=== PATIENT | female | born 1955 | race Asian ===

== ENCOUNTER → 2018-12-16 | Outpatient (CLI) | payer OTHER ==
[2018-12-17 14:53] LABS: RUBEOLA (MEASLES) IGG >300.0 AU/mL (Immune >29.9)
== END | disposition home or self-care (01) ==
LOC: EMPHLTH 13:04
PROVIDERS: ATTEND Internal Medicine
DX: Z02.1 Encounter for pre-employment examination (principal)
CPT/HCPCS: 86706; 86735; 86762; 86765; 86787

== ENCOUNTER → 2018-12-18 | Outpatient (CLI) | payer OTHER | END | disposition home or self-care (01) | LOC: EMPHLTH 14:28 | PROVIDERS: ATTEND Internal Medicine | DX: R76.11 Nonspecific reaction to tuberculin skin test without active tuberculosis (principal) ==

== ENCOUNTER → 2020-01-01 | Outpatient (CLI) | payer OTHER ==
[2020-01-01 10:12] LABS: EOSINOPHILS % (AUTO) 4.8 % (1.0-6.0); HEMATOCRIT 41.5 % (36-46); LYMPHOCYTES # (AUTO) 2.6 K/uL (1.0-4.8); LYMPHOCYTES % (AUTO) 49.4 % (22.0-44.0); MEAN CORPUSCULAR HEMOGLOBIN 31.1 pg (26.0-34.0); MEAN CORPUSCULAR HGB CONC 33.8 G/dL (31.0-37.0); MEAN CORPUSCULAR VOLUME 92 fL (80-100); MONOCYTES # (AUTO) 0.3 K/uL (0.1-1.0); MONOCYTES % (AUTO) 6.2 % (2.0-9.0); NEUTROPHILS % (AUTO) 38.6 % (40.0-70.0); PLATELET COUNT (AUTO) 247 K/uL (150-450); RED BLOOD CELL COUNT(AUTO) 4.52 MIL/uL (4.00-5.20); RED CELL DISTRIBUTION WIDTH 12.8 % (11.5-14.5)
[2020-01-01 10:24] LABS: HEMOGLOBIN A1C 5.5 % (3.8-5.6)
[2020-01-01 10:29] LABS: ALANINE AMINOTRANSFERASE 39 U/L (12-78); ALBUMIN 3.8 g/dL (3.4-5.0); ALKALINE PHOSPHATASE 88 U/L (46-116); ANION GAP 5 mmol/L (8-16); ASPARTATE AMINOTRANSFERASE 28 U/L (15-37); BILIRUBIN,TOTAL 0.9 mg/dL (0.1-1.0); CALCIUM, TOTAL 9.2 mg/dL (8.8-10.5); CARBON DIOXIDE 28 mmol/L (22-29); CHLORIDE 106 mmol/L (98-107); CHOL/HDL RATIO 4.9 (3.9-5.7); CHOLESTEROL 165 mg/dL (131-200); CREATININE 0.73 mg/dL (0.60-1.30); GLOMERULAR FILTR. RATE CALC > 60 mL/min (>60); GLUCOSE,RANDOM 105 mg/dL (70-110); HDL CHOLESTEROL 34 mg/dL (40-60); LDL CHOL (CALC.) 79 mg/dL (0-130); POTASSIUM 4.1 mmol/L (3.5-5.1); SODIUM SERUM 139 mmol/L (136-145); TOTAL PROTEIN, SERUM 7.5 g/dL (6.4-8.2); TRIGLYCERIDES 258 mg/dL (15-150); UREA NITROGEN, BLOOD 16 mg/dL (7-18)
[2020-01-01 10:30] LABS: FOLATE SERUM 18.5 ng/mL (5.4-)
== END | disposition home or self-care (01) ==
LOC: LABPV 08:21
PROVIDERS: ATTEND Legal Medicine
DX: I10 Essential (primary) hypertension (principal); E55.9 Vitamin D deficiency, unspecified
CPT/HCPCS: 82306; 82607; 82746; 83036; 84443

== ENCOUNTER → 2020-01-19 | Outpatient (CLI) | payer OTHER | END | disposition home or self-care (01) | LOC: LABPV 17:19 | PROVIDERS: ATTEND Emergency Medicine | DX: Z20.828 Contact with and (suspected) exposure to other viral communicable diseases (principal) | CPT/HCPCS: 87426; U0003 ==

== ENCOUNTER → 2020-01-26 | Outpatient (CLI) | payer OTHER | END | disposition home or self-care (01) | LOC: LABMN 15:27 | DX: Z20.828 Contact with and (suspected) exposure to other viral communicable diseases (principal) | CPT/HCPCS: U0003-CS ==

== ENCOUNTER → 2021-01-20 | Outpatient (CLI) | payer OTHER ==
[2021-01-20 07:49] LABS: BASOPHILS % (AUTO) 0.8 % (0.0-2.0); EOSINOPHILS % (AUTO) 3.4 % (1.0-6.0); HEMATOCRIT 43.4 % (36-46); HEMOGLOBIN 14.4 g/dL (12.0-16.0); LYMPHOCYTES # (AUTO) 3.5 K/uL (1.0-4.8); LYMPHOCYTES % (AUTO) 50.4 % (22.0-44.0); MEAN CORPUSCULAR HEMOGLOBIN 30.4 pg (26.0-34.0); MEAN CORPUSCULAR HGB CONC 33.1 G/dL (31.0-37.0); MEAN CORPUSCULAR VOLUME 92 fL (80-100); MONOCYTES # (AUTO) 0.5 K/uL (0.1-1.0); MONOCYTES % (AUTO) 7.3 % (2.0-9.0); NEUTROPHILS # (AUTO) 2.7 K/uL (1.8-7.7); NEUTROPHILS % (AUTO) 38.1 % (40.0-70.0); PLATELET COUNT (AUTO) 267 K/uL (150-450); RED BLOOD CELL COUNT(AUTO) 4.74 MIL/uL (4.00-5.20); RED CELL DISTRIBUTION WIDTH 12.8 % (11.5-14.5)
[2021-01-20 08:03] LABS: ALANINE AMINOTRANSFERASE 71 U/L (12-78); ALKALINE PHOSPHATASE 96 U/L (46-116); ANION GAP 9 mmol/L (8-16); ASPARTATE AMINOTRANSFERASE 38 U/L (15-37); BILIRUBIN,TOTAL 1.4 mg/dL (0.1-1.0); CALCIUM, TOTAL 9.1 mg/dL (8.8-10.5); CARBON DIOXIDE 28 mmol/L (22-29); CHLORIDE 107 mmol/L (98-107); CHOL/HDL RATIO 4.7 (3.9-5.7); CHOLESTEROL 205 mg/dL (131-200); CREATININE 0.65 mg/dL (0.60-1.30); GLOMERULAR FILTR. RATE CALC > 60 mL/min (>60); GLUCOSE,RANDOM 101 mg/dL (70-110); HDL CHOLESTEROL 44 mg/dL (40-60); LDL CHOL (CALC.) 126 mg/dL (0-130); SODIUM SERUM 144 mmol/L (136-145); TOTAL PROTEIN, SERUM 7.8 g/dL (6.4-8.2); TRIGLYCERIDES 174 mg/dL (15-150); UREA NITROGEN, BLOOD 16 mg/dL (7-18)
[2021-01-20 08:22] LABS: THYROID STIMULATING HORMONE 2.88 uIU/mL (0.36-3.74)
== END | disposition home or self-care (01) ==
LOC: LABPV 07:25
PROVIDERS: ATTEND Legal Medicine
DX: I10 Essential (primary) hypertension (principal); E78.5 Hyperlipidemia, unspecified; E55.9 Vitamin D deficiency, unspecified; I83.90 Asymptomatic varicose veins of unspecified lower extremity
CPT/HCPCS: 80053; 80061; 82306; 84443; 85025

== ENCOUNTER 2021-07-17 18:14 | Emergency (ER) | payer OTHER ==
[~2021-07-17] VITALS: Ht 154.9 cm; Wt 65.9 kg
[2021-07-17] MEDS ORDERED: ACETAMINOPHEN 500 MG TABLET PO ONE (19:15)
[2021-07-17 19:23] LABS: BASOPHILS % (AUTO) 0.6 % (0.0-2.0); EOSINOPHILS % (AUTO) 1.2 % (1.0-6.0); HEMATOCRIT 46.5 % (36-46); LYMPHOCYTES # (AUTO) 1.5 K/uL (1.0-4.8); LYMPHOCYTES % (AUTO) 21.9 % (22.0-44.0); MEAN CORPUSCULAR HEMOGLOBIN 30.8 pg (26.0-34.0); MEAN CORPUSCULAR HGB CONC 34.5 G/dL (31.0-37.0); MEAN CORPUSCULAR VOLUME 89 fL (80-100); MONOCYTES # (AUTO) 0.3 K/uL (0.1-1.0); MONOCYTES % (AUTO) 4.5 % (2.0-9.0); NEUTROPHILS # (AUTO) 5.1 K/uL (1.8-7.7); NEUTROPHILS % (AUTO) 71.8 % (40.0-70.0); PLATELET COUNT (AUTO) 272 K/uL (150-450); RED BLOOD CELL COUNT(AUTO) 5.22 MIL/uL (4.00-5.20)
[2021-07-17 19:30] LABS: ANION GAP 12 mmol/L (8-16); CALCIUM, TOTAL 9.5 mg/dL (8.8-10.5); CARBON DIOXIDE 28 mmol/L (22-29); CHLORIDE 104 mmol/L (98-107); CREATININE 0.66 mg/dL (0.60-1.30); GLOMERULAR FILTR. RATE CALC > 60 mL/min (>60); GLUCOSE,RANDOM 113 mg/dL (70-110); POTASSIUM 3.6 mmol/L (3.5-5.1); SODIUM SERUM 144 mmol/L (136-145); UREA NITROGEN, BLOOD 9 mg/dL (7-18)
[2021-07-17 19:36] LABS: ALANINE AMINOTRANSFERASE 47 U/L (12-78); ALBUMIN 4.4 g/dL (3.4-5.0); ALKALINE PHOSPHATASE 110 U/L (46-116); ASPARTATE AMINOTRANSFERASE 27 U/L (15-37)
[2021-07-17 19:49] VITALS: BP 150/92
== END 2021-07-17 20:14 | disposition home or self-care (01) ==
LOC: EMS 18:14
DX: F43.20 Adjustment disorder, unspecified (principal); I10 Essential (primary) hypertension; Z79.899 Other long term (current) drug therapy
CPT/HCPCS: 80053; 84484; 85025; 93005; 99284

== ENCOUNTER → 2022-09-22 | Outpatient (CLI) | payer OTHER | END | disposition home or self-care (01) | LOC: RADMN 11:01 | PROVIDERS: ATTEND Internal Medicine | DX: Z86.11 Personal history of tuberculosis (principal) | CPT/HCPCS: 71045 ==

== ENCOUNTER → 2025-02-05 | Outpatient (CLI) | payer OTHER ==
[2025-02-05 11:04] LABS: PLATELET COUNT (AUTO) 270 K/uL (150-450); RED BLOOD CELL COUNT(AUTO) 4.77 MIL/uL (4.00-5.20); RED CELL DISTRIBUTION WIDTH 12.8 % (11.5-14.5); WHITE BLOOD COUNT (AUTO) 6.8 K/uL (4.5-11.0)
[2025-02-05 13:42] LABS: ASPARTATE AMINOTRANSFERASE 29 U/L (15-37); CALCIUM, TOTAL 9.2 mg/dL (8.8-10.5); CHOL/HDL RATIO 4.7 (3.9-5.7); CREATININE 0.61 mg/dL (0.60-1.30); GLOMERULAR FILTR. RATE CALC > 60 mL/min (>60); GLUCOSE,RANDOM 103 mg/dL (70-110); LDL CHOL (CALC.) 133 mg/dL (0-130); SODIUM SERUM 142 mmol/L (136-145); TOTAL PROTEIN, SERUM 7.4 g/dL (6.4-8.2); UREA NITROGEN, BLOOD 11 mg/dL (7-18)
== END | disposition home or self-care (01) ==
LOC: LABMN 10:39
PROVIDERS: ATTEND Legal Medicine
DX: I10 Essential (primary) hypertension (principal); E78.5 Hyperlipidemia, unspecified; I83.90 Asymptomatic varicose veins of unspecified lower extremity; F43.10 Post-traumatic stress disorder, unspecified
CPT/HCPCS: 80053; 80061; 85025; 36415-L1; 36415-TC

== ENCOUNTER 2025-02-17 17:33 | Inpatient (IN) | payer MEDICARE, OTHER ==
[~2025-02-17] VITALS: Ht 160 cm; Wt 66.9 kg
[2025-02-17 18:09] LABS: APPEARANCE,URINE CLEAR (CLEAR); GLUCOSE, URINE (UA) NEGATIVE (NEGATIVE); LEUKOCYTE ESTERASE ,URINE MODERATE (NEGATIVE); NITRATE,URINE NEGATIVE (NEGATIVE); OCCULT BLOOD,URINE TRACE (NEGATIVE); SPECIFIC GRAVITIY, URINE 1.006 (1.003-1.030)
[2025-02-17 18:32] LABS: PLATELET COUNT (AUTO) 272 K/uL (150-450); RED BLOOD CELL COUNT(AUTO) 4.83 MIL/uL (4.00-5.20); RED CELL DISTRIBUTION WIDTH 12.9 % (11.5-14.5); WHITE BLOOD COUNT (AUTO) 9.2 K/uL (4.5-11.0)
[2025-02-17 18:37] LABS: CALCIUM, TOTAL 9.5 mg/dL (8.8-10.5); CREATININE 0.77 mg/dL (0.60-1.30); GLOMERULAR FILTR. RATE CALC > 60 mL/min (>60); GLUCOSE,RANDOM 139 mg/dL (70-110); SODIUM SERUM 141 mmol/L (136-145); UREA NITROGEN, BLOOD 12 mg/dL (7-18)
[2025-02-17 18:38] LABS: SQUAMOUS EPITHELIAL CELL,UR Rare /LPF (None Seen)
[2025-02-17 18:44] LABS: ASPARTATE AMINOTRANSFERASE 24.0 U/L (15-37); CREATINE KINASE, TOTAL ONLY 97.0 U/L (26-192); TOTAL PROTEIN, SERUM 7.5 g/dL (6.4-8.2)
[2025-02-17 18:53] LABS: TROPONIN I-HIGH SENSITIVITY 5 ng/L (<51)
[2025-02-17 20:54] LABS: TROPONIN I-HIGH SENSITIVITY 4 ng/L (<51)
[2025-02-17] MEDS: ACETAMINOPHEN 500 MG TABLET PO ONE (20:55)
[2025-02-17] MEDS: SODIUM CHLORIDE 0.9% 1,000 ML IV ONE (20:55)
[2025-02-17] MEDS: ONDANSETRON HCL 4 MG/2 ML VIAL IVP ONE (20:55)
[2025-02-17] MEDS ORDERED: AMLO-258 PO (21:56)
[2025-02-17] MEDS ORDERED: ATOR40TA28 PO (21:56)
[2025-02-17] MEDS ORDERED: ACETAMINOPHEN 325 MG TABLET PO PRN (22:00)
[2025-02-17] MEDS ORDERED: ONDANSETRON HCL 4 MG/2 ML VIAL IVP PRN (22:00)
[2025-02-17] MEDS: MORPHINE SULFATE 2 MG/ML SYRINGE IVP ONE (22:20)
[2025-02-17] MEDS: CefTRIAXone 1 GM/DEXTROSE 50 ML IV ONE (22:20)
[2025-02-17] MEDS: HEPARIN SODIUM,PORCINE 5,000 UNITS/ML VIAL SQ SCH (23:19)
[2025-02-18 03:48] VITALS: BP 129/70; PULSE 65; RESP 18; TEMP 97.4; O2SAT 97
[2025-02-18 06:57] LABS: PLATELET COUNT (AUTO) 247 K/uL (150-450); RED BLOOD CELL COUNT(AUTO) 4.50 MIL/uL (4.00-5.20); RED CELL DISTRIBUTION WIDTH 12.8 % (11.5-14.5); WHITE BLOOD COUNT (AUTO) 8.0 K/uL (4.5-11.0)
[2025-02-18 07:05] LABS: CALCIUM, TOTAL 9.1 mg/dL (8.8-10.5); CREATININE 0.56 mg/dL (0.60-1.30); GLOMERULAR FILTR. RATE CALC > 60 mL/min (>60); GLUCOSE,RANDOM 96 mg/dL (70-110); SODIUM SERUM 143 mmol/L (136-145); UREA NITROGEN, BLOOD 10 mg/dL (7-18)
[2025-02-18 07:39] VITALS: BP 116/62; PULSE 65; RESP 18; TEMP 98; O2SAT 96
[2025-02-18] MEDS ORDERED: GABA-1216 PO ×2 (07:46)
[2025-02-18] MEDS ORDERED: LOSA50TA65 PO (07:46)
[2025-02-18] MEDS: DOCUSATE SODIUM 100 MG CAPSULE PO SCH ×2 (08:12→21:00)
[2025-02-18 11:26] VITALS: BP 121/57; PULSE 61; RESP 18; TEMP 98.7; O2SAT 97
[2025-02-18] MEDS ORDERED: IPRATROPIUM BROMIDE 0.5 MG/2.5 ML NEB SOLUTION NEB PRN (12:45)
[2025-02-18] MEDS ORDERED: ONDANSETRON HCL 4 MG/2 ML VIAL IVP PRN (12:45)
[2025-02-18] MEDS ORDERED: ZOLPIDEM TARTRATE 5 MG TABLET PO PRN (12:45)
[2025-02-18] MEDS ORDERED: MAGNESIUM HYDROXIDE SUSPENSION 30 ML UDCUP PO PRN (12:45)
[2025-02-18] MEDS ORDERED: ACETAMINOPHEN 325 MG TABLET PO PRN (12:45)
[2025-02-18] MEDS ORDERED: ALBUTEROL SULFATE 2.5 MG/0.5 ML NEB SOLUTION NEB PRN (12:45)
[2025-02-18] MEDS ORDERED: BISACODYL 10 MG RECTAL RECTAL SUPPOSITORY PR PRN (12:45)
[2025-02-18 14:13] LABS: TROPONIN I-HIGH SENSITIVITY 5 ng/L (<51)
[2025-02-18 16:51] VITALS: BP 158/78; PULSE 64; RESP 18; TEMP 98; O2SAT 97
[2025-02-18] MEDS ORDERED: SODIUM CHLORIDE 0.9% 250 ML IV ONE (17:45)
[2025-02-18] MEDS: CefTRIAXone 1 GM/DEXTROSE 50 ML IV SCH (17:48)
[2025-02-18 20:29] VITALS: BP 129/59; PULSE 63; RESP 18; TEMP 98.2; O2SAT 98
[2025-02-18] MEDS: ATORVASTATIN CALCIUM 40 MG TABLET PO SCH (21:07)
[2025-02-18] MEDS: MORPHINE SULFATE 4 MG/ML SYRINGE IVP PRN (21:08)
[2025-02-19 00:17] VITALS: BP 138/69; PULSE 60; RESP 19; TEMP 98.1; O2SAT 97
[2025-02-19] MEDS: HYDROCODONE/ACETAMINOPHEN 5-325 MG TABLET PO PRN (00:50)
[2025-02-19 05:11] VITALS: BP 108/56; PULSE 55; RESP 18; TEMP 97.9; O2SAT 98
[2025-02-19 06:56] LABS: PLATELET COUNT (AUTO) 244 K/uL (150-450); RED BLOOD CELL COUNT(AUTO) 4.60 MIL/uL (4.00-5.20); RED CELL DISTRIBUTION WIDTH 12.8 % (11.5-14.5); WHITE BLOOD COUNT (AUTO) 7.8 K/uL (4.5-11.0)
[2025-02-19 07:11] LABS: CALCIUM, TOTAL 9.1 mg/dL (8.8-10.5); CREATININE 0.73 mg/dL (0.60-1.30); GLOMERULAR FILTR. RATE CALC > 60 mL/min (>60); GLUCOSE,RANDOM 104 mg/dL (70-110); SODIUM SERUM 140 mmol/L (136-145); UREA NITROGEN, BLOOD 10 mg/dL (7-18)
[2025-02-19 07:54] VITALS: BP 112/65; PULSE 58; RESP 16; TEMP 98.4; O2SAT 98
[2025-02-19] MEDS: PANTOPRAZOLE SODIUM 40 MG DR TABLET PO SCH (09:00)
[2025-02-19 12:01] VITALS: BP 125/84; PULSE 65; RESP 16; TEMP 98; O2SAT 98
[2025-02-19 15:25] VITALS: BP 118/62; PULSE 63; RESP 18; TEMP 98.4; O2SAT 98
[2025-02-19 20:09] VITALS: BP 134/74; PULSE 68; RESP 19; TEMP 98.2; O2SAT 99
[2025-02-20 00:18] VITALS: BP 108/58; PULSE 56; RESP 16; TEMP 98.1; O2SAT 97
[2025-02-20 05:43] VITALS: BP 120/74; PULSE 58; RESP 16; TEMP 97.9; O2SAT 97
[2025-02-20 08:28] VITALS: BP 118/80; PULSE 63; RESP 18; TEMP 98.2; O2SAT 98
[2025-02-20 11:39] VITALS: BP 129/74; PULSE 74; RESP 16; TEMP 98.1; O2SAT 98
[2025-02-20] MEDS ORDERED: CEPH-558 PO (12:39)
[2025-02-20] MEDS ORDERED: HYDR-4062 PO (12:39)
[2025-02-20 16:32] VITALS: BP 121/66; PULSE 71; RESP 16; TEMP 98.4; O2SAT 97
[2025-02-20 20:00] VITALS: BP 129/71; PULSE 69; RESP 18; TEMP 98.2; O2SAT 99
[2025-02-21 00:15] VITALS: BP 144/91; PULSE 56; RESP 18; TEMP 98.4; O2SAT 99
[2025-02-21 04:28] VITALS: BP 109/70; PULSE 59; RESP 18; TEMP 97.9; O2SAT 96
[2025-02-21 08:21] VITALS: BP 126/75; PULSE 62; RESP 18; TEMP 97.8; O2SAT 97
[2025-02-21] MEDS ORDERED: ASPI-1444 PO (14:44)
[2025-02-21] MEDS: ASPIRIN 81 MG CHEWABLE TABLET PO SCH (15:22)
[2025-02-21 17:35] VITALS: BP 128/85; PULSE 18; RESP 18; TEMP 97.5; O2SAT 97
[2025-02-21 19:46] LABS: PLATELET COUNT (AUTO) 286 K/uL (150-450); RED BLOOD CELL COUNT(AUTO) 4.89 MIL/uL (4.00-5.20); RED CELL DISTRIBUTION WIDTH 13.0 % (11.5-14.5); WHITE BLOOD COUNT (AUTO) 9.3 K/uL (4.5-11.0)
[2025-02-21 19:50] LABS: CALCIUM, TOTAL 9.7 mg/dL (8.8-10.5); CREATININE 0.68 mg/dL (0.60-1.30); GLOMERULAR FILTR. RATE CALC > 60 mL/min (>60); GLUCOSE,RANDOM 125 mg/dL (70-110); SODIUM SERUM 141 mmol/L (136-145); UREA NITROGEN, BLOOD 12 mg/dL (7-18)
[2025-02-21 19:55] LABS: ASPARTATE AMINOTRANSFERASE 32 U/L (15-37); TOTAL PROTEIN, SERUM 7.8 g/dL (6.4-8.2)
[2025-02-21 19:57] LABS: LACTIC ACID 1.5 mmol/L (0.4-2.0)
[2025-02-21 20:06] VITALS: BP 137/86; PULSE 71; RESP 19; TEMP 98.4; O2SAT 97
== END 2025-02-21 20:25 | disposition home or self-care (01) | DRG 65 ==
LOC: EMS 17:33 → EDH 21:48 → 5S 02-18 03:09
PROVIDERS: ADMIT Internal Medicine; ATTEND Internal Medicine
PROC: 0HQEXZZ Repair Left Lower Arm Skin, External Approach (ICD-10-PCS; principal; 2025-02-17)
DX: I63.81 Other cerebral infarction due to occlusion or stenosis of small artery (principal); N39.0 Urinary tract infection, site not specified; R45.851 Suicidal ideations; G90.89 Other disorders of autonomic nervous system; I10 Essential (primary) hypertension; R56.9 Unspecified convulsions; E78.5 Hyperlipidemia, unspecified; R79.89 Other specified abnormal findings of blood chemistry; R00.1 Bradycardia, unspecified; I95.9 Hypotension, unspecified; M79.18 Myalgia, other site; F07.81 Postconcussional syndrome; S41.112A Laceration without foreign body of left upper arm, initial encounter; W18.39XA Other fall on same level, initial encounter; Y93.89 Activity, other specified; Y92.89 Other specified places as the place of occurrence of the external cause; Y99.8 Other external cause status; Z79.899 Other long term (current) drug therapy
CPT/HCPCS: 70450; 70551; 71045; 72125; 80048; 80053; 80076; 81001; 82550; 83605; 83735; 83880; 84132; 84443; 84484; 85025; 85610; 85730; 87086; 93005; 93306; 93880; 99285; G0378; J0696; J1644; J2270; J2405; J7030; J7050; 36415-L1; 36415-TC